=== PATIENT | female | born 1980 | race Caucasian/White ===

== ENCOUNTER 2020-04-17 02:09 | Emergency (ER) | payer BC, SELFPAY ==
[2020-04-17 02:10] VITALS: BP 141/82; PULSE 96; RESP 16; TEMP 36.7; O2SAT 98; BMI 33.0
--- NOTE | 2020-04-17 02:23 | EKG12_ITS ---
Test Reason : DYSRHYTHMIA Blood Pressure : / mmHG Vent. Rate : 073 BPM Atrial Rate : 073 BPM P-R Int : 148 ms QRS Dur : 108 ms QT Int : 420 ms P-R-T Axes : 024 065 028 degrees QTc Int : 462 ms Normal sinus rhythm Nonspecific ST abnormality Abnormal ECG Confirmed by ANDREI CLAUDIO, TENISHA ([id number]), design editor JEB MUKHERJEE ([id number]) on 04/18/2020 8:23:19 AM Referred By: KENNY Confirmed By:TENISHA FORBES MD
--- NOTE | 2020-04-17 02:23 | ED.VIS.GEN ---
History of Present Illness Chief Complaint: Palpitations Informant: Patient, Electrical Controls Technician Onset: Hours - 2-3 Context: Sudden Onset Timing: Continuous Quality: racing heartbeat Location: chest Current Severity: gone Maximum Severity: Moderate Worsened by: nothing in particular Relieved by: a warm bath, temporarily Associated Symptoms: nausea, a little sob, nervous Narrative: Patient states she had an online meeting tonight for about 2 hours and afterwards, one-point she suddenly felt her heart start racing. This went on for a couple hours. She took a warm bath which seemed to help but upon getting out, she felt it continuing to race, she had no headache or chest pain but did feel little short of breath at one point as a result. She felt a little lightheaded but had no near syncope or loss of consciousness. No recent leg pain or swelling. Has a history of varicose veins and states they have been stable without any pain recently. She takes no medications or illicit drugs, no alcohol tonight. No recent illnesses. Never had this happen before. No history of heart or lung conditions. States that upon EMS arrival, her symptoms started to improve and then when she got into the ambulance everything seemed to resolve and she felt back to normal and has ever since. Prior similar symptoms: No Recent Illness/Hospitalization: No Past Medical History - Allergies and Home Meds Allergies/Adverse Reactions: Allergies aspirin Allergy (Verified 04/17/20 02:14) Hives Primary Care Physician: Mateus Ribeior MD [STAFF PHYSICIAN] - (call for appt) Past Medical History: None Smoking Status: Never smoker Alcohol: None Drugs: None Review of Systems General: Denies: Chills, Fever, Sweats Eyes: Denies: Visual changes - bilaterally, Diplopia ENT: Denies: Rhinorrhea, Sore throat Cardiovascular: Reports: Palpitations, Heart racing. Denies: Chest pain Respiratory: Reports: Dyspnea. Denies: Cough, Dyspnea on exertion Gastrointestinal: Reports: Nausea. Denies: Abdominal pain, Vomiting, Diarrhea, Melena, Hematochezia Genitourinary: Denies: Dysuria, Hematuria, Frequency Musculoskeletal: Denies: Back pain, Swelling, Extremity Pain Skin: Denies: Rash, Wounds Neurological: Denies: Headache, Weakness, Numbness Physical Exam Vital Signs/Narrative: Vital Signs Temp Pulse Resp BP Pulse Ox 04/17/20 02:10 98.1 F 96 16 141/82 H 98 Inital Vital Signs reviewed: Yes General: Well nourished, Well developed, No Acute Distress Head: Normocephalic, Atraumatic Eyes: Perrl, EOMI ENT: Moist mucous membranes, No rhinorrhea Neck: Supple, Nontender, No JVD Cardiovascular: Regular rate, Regular rhythm, No murmurs. Negative for: Tachycardia Respiratory: No distress, CTA bilaterally, Chest nontender Abdomen: Soft, Nontender, Nondistended, Normal bowel sounds Back: Nontender, Normal Inspection Extremities: Nontender, No edema. Negative for: Calf Tenderness Skin: Normal color, No rash, No Trauma Neurological: Alert, Oriented x3, Cranial nerves II-XII grossly intact, Normal Strength, Normal Sensation Psychological: Normal Mood, - - A little anxious Diagnostic/Tx/Re-eval Laboratory Results 04/17/20 04/17/20 02:20 02:20 WBC 15.1 H RBC 4.31 Hgb 12.6 Hct 37.8 MCV 87.7 MCH 29.2 MCHC 33.3 RDW Std Deviation 41.7 RDW Coeff of Willie 13.0 Plt Count 201 MPV 11.4 Immature Gran % (Auto) 0.200 Neut % (Auto) 87.0 H Lymph % (Auto) 6.8 L [place] % (Auto) 5.5 Eos % (Auto) 0.3 Baso % (Auto) 0.2 Absolute Neuts (auto) 13.1 H Absolute Lymphs (auto) 1.02 Nucleated RBC % 0 Sodium 139 Potassium 3.6 Chloride 109 H Carbon Dioxide 24.0 Anion Gap 6 BUN 11 Creatinine 0.74 Estim Creat Clear Calc 103.98 Est GFR (MDRD) Af Amer 113 Est GFR (MDRD) Non-Af 94 BUN/Creatinine Ratio 14.9 Glucose 87 Calcium 8.5 Troponin I < 0.015 - Rhythm Strip Rhythm Strip: Sinus Rhythm Rate: 70 Ectopy: None - EKG Initial EKG Interpretation: Sinus Rhythm, No Acute Injury Pattern - Normal EKG - Medical Decision Making Aside from a nonspecific leukocytosis her work-up is negative. No electrolyte disturbances or abnormal troponin. Patient was monitored for over an hour and had no recurrent symptoms or telemetry events. She is reassured this likely was not a life-threatening dysrhythmia, but certainly a dysrhythmia is in the differential diagnosis and there are several different types in the differential as I discussed with her. I recommend close outpatient follow-up, or return to the ER for recurrent symptoms. She was referred to cardiology for the possibility of a event or Holter monitor and further work-up. ED Disposition - Plan for ED Patient: Disposition: Home or Assisted Living Diagnosis: Palpitations Instructions: ED Palpitations Referrals: Mateus Ribeiro MD [STAFF PHYSICIAN] - (call for appt)
[2020-04-17 02:28] LABS: Absolute Lymphocyte Count 1.02 X10^3/uL (0.83-4.51); Absolute Neutrophil Count 13.1 X10^3/uL (2.0-7.7); Basophil# 0.03 X10^3/uL; Basophil% 0.2 % (0-1); Eosinophil# 0.05 X10^3/uL; Eosinophils% 0.3 % (0-5); Hematocrit 37.8 % (37-47); Hemoglobin 12.6 g/dL (12.0-15.0); Lymphocyte # 1.02 X10^3/ul (4.0); Lymphocyte % 6.8 % (19-41); Mean Corp Hgb Conc 33.3 g/dL (32-36); Mean Corpuscular Hgb 29.2 pg (27.0-32.0); Mean Corpuscular Volume 87.7 fL (81-99); Mean Platelet Vol. 11.4 fl (6.2-12.0); Monocyte# 0.83 X10^3/uL; Monocyte% 5.5 % (0-10); NRBC Flagged by Analyzer 0 % (0-5); Platelet Count 201 K/mm3 (150-450); RBC Distribution Width SD 41.7 fl (35.1-43.9); Red Blood Count 4.31 M/mm3 (4.2-5.4); White Blood Count 15.1 K/mm3 (4.4-11.0)
[2020-04-17 02:47] LABS: Anion Gap 6 (5-15); BUN 11 mg/dL (7-18); BUN/Creat Ratio 14.9 RATIO (10-20); Calcium,Total 8.5 mg/dL (8.5-10.1); Chloride 109 mmol/L (98-107); Creatinine, Serum 0.74 mg/dL (0.55-1.02); EST Glomerular Filtration Rate 94 mL/min (>60); Est Glom Filt Rate - Afr Amer 113 mL/min (>60); Estimated Creatinine Clearance 103.98 ml/min; Glucose 87 mg/dL (74-106); Potassium 3.6 mmol/L (3.5-5.1); Sodium Level 139 mmol/L (136-145)
[2020-04-17 03:20] VITALS: BP 117/63; PULSE 81; RESP 16; O2SAT 100
== END 2020-04-17 04:11 | disposition home or self-care (01) ==
PROVIDERS: Emergency Provider Emergency Medicine; PCP Nurse Practitioner Family
DX: R00.2 Palpitations (principal)
CPT/HCPCS: 80048; 84484; 85025; 93005; 99284

== ENCOUNTER 2021-12-28 21:35 | Emergency (ER) | payer BC, SELFPAY ==
[2021-12-28 21:36] VITALS: BP 138/79; PULSE 65; RESP 15; TEMP 36.2; O2SAT 100; BMI 29.6
--- NOTE | 2021-12-28 22:10 | ED.VIS.LOWEX ---
HPI History of Present Illness Chief Complaint: Lower Extremity Injury Narrative Narrative: 41-year-old female presenting with left ankle pain. She states that it hurts in the left lateral malleolus. She [place] and it was [place] but she rolled her ankle. She had an antalgic gait but was able to get home and use crutches. She has not used ice because she states it makes it hurt worse. She had taken ibuprofen and a muscle relaxer but when she got up to walk she said that it felt sharp in the left ankle and she started to shake due to the level of pain that she had. She denies any direct trauma. PFSH PFSH Home Medications multivitamin with minerals 1 ea PO DAILY 04/17/20 [History Last Taken Unknown] naproxen 500 mg tablet (Naprosyn) 500 mg PO BID PRN pain #20 tabs 12/28/21 [Rx Last Taken Unknown] Allergy/AdvReac Type Severity Reaction Status Date / Time aspirin Allergy Hives Verified 12/28/21 21:38 Social History Smoking Status: Never smoker ROS ROS ED Constitutional Constitutional ED: Reports chills and fever(s) Eyes Eyes: Denies change in vision or diplopia ENT ENT ED: Reports rhinorrhea and sore throat Cardiovascular Cardiovascular: Denies chest pain or palpitations Respiratory/Chest Respiratory/Chest: Denies cough or dyspnea Gastrointestinal Gastrointestinal: Denies abdominal pain or constipation Genitourinary Genitourinary ED: Denies dysuria or hematuria Musculoskeletal Musculoskeletal: Reports other Details: Left ankle pain ; Denies arthralgias or back pain Integumentary Denies abscess or Abrasions Neurologic Neurologic: Denies headache(s) or paresthesias EXAM Physical Exam Const Vital Signs: 12/28/21 21:36 Temperature 97.2 F L Temperature Source Temporal Pulse Rate 65 Respiratory Rate 15 Blood Pressure 138/79 H Blood Pressure Mean 98 Pulse Ox 100 Oxygen Delivery Method Room Air Positive well nourished General Appearance ED: NAD HEENT Reports moist mucous membranes normocephalic and atraumatic Eyes PERRL Resp normal respiratory effort Cardio regular rate and regular rhythm Back/Spine no CVA tenderness Extremity Extremity Narrative: Left ankle tender to palpation over the lateral malleolus. There is no pain in the medial malleolus. No proximal fibular head tenderness. Achilles tendon is nontender. There is no tenderness to palpation in the foot at the base of the fifth metatarsal, navicular. Left foot neurovascular intact brisk cap refill to all 5 toes Neuro oriented x3, CN's II-XII intact bilaterally, moves all extremities and no sensory deficits noted Sensorium / Orientation: alert Motor Exam: strength 5/5 throughout Psych mental status grossly normal Skin no wounds MDM MDM MDM Narrative Medical decision making narrative: Patient presents with left ankle pain. She brought crutches because she states it hurts to walk. On examination she has tenderness on the left lateral malleolus but no swelling no bruising. She is neurovascular intact. There is no deformity. Patient denies analgesia in the ER. I obtained an x-ray of the left ankle and on my interpretation there are no acute fractures or subluxation. Patient will placed on [place] wrap and Aircast. She already has crutches. Patient counseled on ice, rest, elevation. Weightbearing as tolerated. Impression: 1. Left ankle sprain Radiography Diagnostic Testing: Clinical Impression(s) from Imaging Studies Ankle X-Ray 12/28/21 22:27 IMPRESSION: Normal x-ray examination of the ankle. Electronically Signed: Jace Almanzar MD at 22:43 EDT , Discharge Plan Triage Chief Complaint: Lower Extremity Injury ED Provider: Callum Hampton Dx/Rx/DC Orders Instructions: ED Ankle Sprain (Adult) Prescriptions: New naproxen [Naprosyn] 500 mg tablet 500 mg PO BID PRN (Reason: pain) Qty: 20 0RF No Action multivitamin with minerals 1 EACH tablet 1 ea PO DAILY Primary Care Provider: Kusum Aguilar NP Referrals: Kusum Aguilar NP, [facility] [Primary Care Provider] - Disposition Disposition: Home, Self Care
--- NOTE | 2021-12-28 22:27 | RAD_ITS ---
STUDY: X-RAY - LEFT ANKLE REASON FOR EXAM: Female, 41 years old. pain TECHNIQUE: 3 view(s) of the ankle. COMPARISON: None. FINDINGS: Normal visualized distal tibia and fibula. Normal medial and lateral malleoli. Normal tibiotalar articulation and ankle mortise. Normal visualized talus and calcaneus. The visualized subtalar, talonavicular, calcaneocuboid and tarsal articulations are normal. The soft tissue structures are unremarkable. RAD/Ankle min 3 Views IMPRESSION: Normal x-ray examination of the ankle. Electronically Signed: Jace Almanzar MD at 22:43 EDT ,
[2021-12-28 23:06] VITALS: BP 117/70
== END 2021-12-28 23:07 | disposition home or self-care (01) ==
PROVIDERS: Emergency Provider Student in an Organized Health Care Education/Training Program; PCP Nurse Practitioner Family; Visit Provider Student in an Organized Health Care Education/Training Program
DX: S93.492A Sprain of other ligament of left ankle, initial encounter (principal); X50.1XXA Overexertion from prolonged static or awkward postures, initial encounter; Y93.01 Activity, walking, marching and hiking
CPT/HCPCS: 73610; 99283

== ENCOUNTER → 2022-04-18 | Outpatient (CLI) | payer BC, SELFPAY | END | disposition home or self-care (01) | LOC: PSN 08:35 | PROVIDERS: PCP Nurse Practitioner Family; Visit Provider Nurse Practitioner Family | DX: R00.2 Palpitations (principal) | CPT/HCPCS: 93225; 93226 ==

== ENCOUNTER → 2024-03-18 | Outpatient (CLI) | payer BC, SELFPAY ==
--- NOTE | 2024-03-18 12:56 | STE_ITS ---
Reason For Study: SOB, FATIGUE Stress Results Protocol: Jose Protocol Maximum Predicted HR: 178 bpm Target HR: 151 bpm % Maximum Predicted HR: 85 % DurationHeart Rate Stage (mm:ss) (bpm) BP Comment BASELINE 66 112/62 STAGE 1 3:00 118 120/72 STAGE 2 3:00 133 142/62 STAGE 3 3:00 151 152/80SOB NOTED RECOVERY 87 112/78 Stress Duration: 9:00 mm:ss Maximum Stress HR: 151 bpm Baseline Echocardiogram Findings The estimated ejection fraction is 60 %. Post exercise EF is 70%. Stress Echo Wall motion Data Resting WM Intermediate WM Stress WM Resting Wall Motion Wall Motion Stress No regional wall motion No regional wall motion abnormalities noted. abnormalities noted. EKG Data The baseline ECG displays normal sinus rhythm. No significant ischemic changes. Symptoms with Stress The patient experinced no chest pain . ECHO/Stress Test Echo w/o Contrast Interpretation Summary The estimated ejection fraction is 60 %. Exercise echo is negative for exercise-induced chest pain or EKG changes or ech ocardiographic changes of ischemia. Functional capacity is normal for age Ordering Physician: Kusum Aguilar Referring Physician: Kusum Aguilar Performed By: Liz Berry RCS
== END | disposition home or self-care (01) ==
LOC: CVS 12:49
PROVIDERS: PCP Nurse Practitioner Family; Referring Provider Nurse Practitioner Family; Visit Provider Nurse Practitioner Family
DX: R06.02 Shortness of breath (principal); R53.83 Other fatigue; E66.9 Obesity, unspecified
CPT/HCPCS: 93017; 93350; 94060; 94726; 94729